=== PATIENT | male | born 1995 | race African-American/Black ===

== ENCOUNTER 2017-01-08 02:09 | Emergency (ER) | payer OTHER | END 2017-01-08 02:58 | disposition home or self-care (01) | LOC: D.ER 02:09 | DX: H61.21 Impacted cerumen, right ear (principal); J45.909 Unspecified asthma, uncomplicated ==

== ENCOUNTER 2017-02-10 09:59 | Emergency (ER) | payer OTHER | END 2017-02-10 12:15 | disposition home or self-care (01) | LOC: D.ER 09:59 | DX: S90.31XA Contusion of right foot, initial encounter (principal); W22.8XXA Striking against or struck by other objects, initial encounter; Y93.89 Activity, other specified; Y92.013 Bedroom of single-family (private) house as the place of occurrence of the external cause; F17.200 Nicotine dependence, unspecified, uncomplicated ==

== ENCOUNTER 2017-11-24 14:12 | Emergency (ER) | payer SELFPAY | END 2017-11-24 17:48 | disposition home or self-care (01) | LOC: D.ER 14:12 | DX: H10.33 Unspecified acute conjunctivitis, bilateral (principal); F17.200 Nicotine dependence, unspecified, uncomplicated ==

== ENCOUNTER 2018-09-30 05:37 | Emergency (ER) | payer SELFPAY ==
[~2018-09-30] VITALS: Ht 182.9 cm; Wt 79.5 kg
[2018-09-30 05:44] VITALS: Ht 182.9 cm; Wt 79.5 kg
[2018-09-30] MEDS ORDERED: ULTRAM50 MG PO (06:18)
[2018-09-30] MEDS ORDERED: KEFLEX500 MG PO (06:18)
[2018-09-30 06:32] VITALS: BP 146/87
== END 2018-09-30 06:32 | disposition home or self-care (01) ==
LOC: D.ER 05:37
DX: K02.9 Dental caries, unspecified (principal); K08.89 Other specified disorders of teeth and supporting structures; F17.200 Nicotine dependence, unspecified, uncomplicated